=== PATIENT | female | born 1995 | race Caucasian/White ===

== ENCOUNTER 2018-05-25 14:32 | Emergency (ER) | payer MEDICAID, OTHER ==
[2018-05-25 14:54] LABS: Bilirubin Negative (Negative); Blood, Urine Small (Negative); Glucose, Urine (Dipstick) Negative (Negative); Leukocyte Moderate (Negative); Nitrite Negative (Negative); Pregu Control Background? CLEAR/WHITE (CLR/WHITE); Pregu Control Bar Appear? YES (CONTROL BAR); Protein, Urine (Dipstick) Negative (Neg-Trace); Specific Gravity 1.025 (1.002-1.036); Specific Gravity, Urine 1.025 (1.005-1.030); Urobilinogen 0.2 mg/dL (0.2-1.0); pH, Urine 5.5 (5.0-9.0)
[2018-05-25 14:55] LABS: Pregnancy Test - Urine (BHCG) Negative (Negative)
[2018-05-25 14:56] LABS: Clarity Hazy (Clear)
[2018-05-25] MEDS ORDERED: cefTRIAXone\\ROCEPHIN 1 GM VIAL ONE (14:56)
[2018-05-25] MEDS ORDERED: Lidocaine 1% MPF 2 ML VIAL ONE (14:57)
[2018-05-25] MEDS ORDERED: Azithromycin 250 MG TAB ONE (14:58)
[2018-05-25 15:02] LABS: Bacteria/HPF 3+ HPF (None Seen)
== END 2018-05-25 15:21 | disposition home or self-care (01) ==
LOC: SCSER 14:32
DX: A64 Unspecified sexually transmitted disease (principal)
CPT/HCPCS: 81003; 81015; 81025; 96372; J0696

== ENCOUNTER 2018-12-24 15:26 | Emergency (ER) | payer SELFPAY ==
--- NOTE | 2018-12-24 16:48 | RAD ---
PA AND LATERAL CHEST 12/24/18 HISTORY: Cough and fever. Heart size and mediastinum are within normal limits. The lungs are clear of infiltrates. No significa nt bony findings. IMPRESSION: No active intrathoracic disease. POS: [facility]
== END 2018-12-24 16:53 | disposition home or self-care (01) ==
LOC: SCSER 15:26
DX: J10.1 Influenza due to other identified influenza virus with other respiratory manifestations (principal)
CPT/HCPCS: 71046; 87081; 87430; 87804

== ENCOUNTER 2019-02-07 02:44 | Emergency (ER) | payer SELFPAY ==
[2019-02-07] MEDS ORDERED: Acetaminophen 325 MG TAB ONE (03:00)
[2019-02-07] MEDS ORDERED: Morphine 4 MG/ML VIAL ONE (03:21)
[2019-02-07] MEDS ORDERED: Bupivacaine 0.5% 10 ML VIAL ONE (03:21)
--- NOTE | 2019-02-07 09:53 | RAD ---
RIGHT HAND 2 VIEWS: Date: 02/07/19 INDICATION: Post reduction. FINDINGS/IMPRESSION: The fracture involving the distal diaphysis of the 5th metacarpal is again noted. There continues to be slight volar angulation of the distal fragment, not significantly changed from the earlier film. POS: OFF
--- NOTE | 2019-02-07 09:54 | RAD ---
RIGHT HAND 3 VIEWS: Date: 02/07/19 HISTORY: Trauma. FINDINGS: Fracture of the distal diaphysis of the 5th metacarpal with volar angulation of the distal fragment. No other abnormality identified. IMPRESSION: Fracture 5th metacarpal. POS: OFF
--- NOTE | 2019-02-07 10:10 | RAD ---
RIGHT ELBOW 4 VIEWS: Date: 02/07/19 HISTORY: Trauma. Pain and injury. FINDINGS: No evidence of fracture. No evidence of joint effusion. IMPRESSION: No acute abnormality. POS: OFF
== END 2019-02-07 04:07 | disposition home or self-care (01) ==
LOC: SCSER 02:44
DX: S62.336A Displaced fracture of neck of fifth metacarpal bone, right hand, initial encounter for closed fracture (principal); S50.01XA Contusion of right elbow, initial encounter; W19.XXXA Unspecified fall, initial encounter
CPT/HCPCS: 26605; 96372; J2270; J3490